=== PATIENT | female | born 1960 | race Caucasian/White ===

== ENCOUNTER 2017-08-12 11:37 | Inpatient (IN) | payer OTHER ==
[2017-08-12 12:22] VITALS: BMI 22.3
--- NOTE | 2017-08-12 13:58 | HP ---
CIWA Score - CIWA Score Nausea/Vomitin Muscle Tremors: 3 Anxiety: 3 Agitation: 3 Paroxysmal Sweats: 2 Orientation: 0-Oriented Tacttile Disturbances: 2-Mild Itch/Numbness/Burn Auditory Disturbances: 2-Mild Harshness/Frighten Visual Disturbances: 0-None Headache: 2-Mild CIWA-Ar Total Score: 20 Admission ROS [facility] - HPI Chief Complaint: I NEED HELP TO STOP DRINKING OF ALCOHOL Allergies/Adverse Reactions: Allergies Allergy/AdvReac Type Severity Reaction Status Date / Time No Known Allergies Allergy Verified 08/12/17 13:54 History of Present Illness: THIS 57 YEARS OLD FEMALE WITH ALCOHOL DEPENDENCE SEEKING DETOX,WITHDRAWAL SYMPTOM,LAST TREATMENT IN [facility] 07/21 SYNCOPE NICOTINE DEPENDENCE LONGEST PERIOD OF SOBRIETY 2 YEARS Exam Limitations: No Limitations - Ebola screening Have you traveled outside of the country in the last 21 days: No Have you had contact with anyone from an Ebola affected area: No Have you been sick,other than usual withdrawal symptoms: No Do you have a fever: No - Review of Systems Constitutional: Loss of Appetite, Malaise, Night Sweats, Changes in sleep, Weakness EENT: reports: Nose Congestion Respiratory: reports: No Symptoms reported Cardiac: reports: No Symptoms Reported GI: reports: Diarrhea, Nausea, Vomiting, Abdominal cramping : reports: No Symptoms Reported Musculoskeletal: reports: Back Pain, Muscle Pain Integumentary: reports: Dryness Neuro: reports: Tremors Endocrine: reports: No Symptoms Reported Hematology: reports: No Symptoms Reported Psychiatric: reports: Anxious (INSOMNIA), Depressed Patient History - Patient Medical History Hx Anemia: No Hx Asthma: No Hx Chronic Obstructive Pulmonary Disease (COPD): No Hx Cancer: No Hx Cardiac Disorders: No Hx Congestive Heart Failure: No Hx Hypertension: No Hx Hypercholesterolemia: No Hx Pacemaker: No HX Cerebrovascular Accident: No Hx Seizures: No Hx Dementia: No Hx Diabetes: No Hx Gastrointestinal Disorders: No Hx Liver Disease: No Hx Genitourinary Disorders: No Hx Sexually Transmitted Disorders: No Hx Renal Disease (ESRD): No Hx Thyroid Disease: No Hx Human Immunodeficiency Virus (HIV): No (LAST NEGATIVE) Hx Hepatitis C: No Hx Depression: No (DEPRESSIN,INSOMNIA) Hx Suicide Attempt: No Hx Bipolar Disorder: No Hx Schizophrenia: No Other Medical History: NO SUICIDAL,NO HOMICIDAL - Patient Surgical History Past Surgical History: No - PPD History Previous Implant?: Yes Documented Results: Negative w/o proof Implanted On Prior R Admission?: No PPD to be Administered?: Yes - Reproductive History Patient is a Female of Child Bearing Age (11 -55 yrs old): No Patient : No - Smoking Cessation Smoking history: Current every day smoker Have you smoked in the past 12 months: Yes Aproximately how many cigarettes per day: 5 Hx Chewing Tobacco Use: No Initiated information on smoking cessation: Yes 'Breaking Loose' booklet given: 08/12/17 - Substance & Tx. History Hx Alcohol Use: Yes - Substances Abused Alcohol Route: Oral Frequency: Daily Amount used: 1/2 PINT-1 PINT VODKA Age of first use: 17 Date of Last Use: 08/12/17 Family Disease History - Family Disease History Family History: Denies Admission Physical Exam [facility] - Vital Signs Vital Signs: Vital Signs - 24 hr 08/12/17 12:17 Temperature 96.8 F L Pulse Rate 112 H Respiratory 18 Rate Blood Pressure 137/87 - Physical General Appearance: Yes: Moderate Distress, Tremorous, Irritable, Sweating, Anxious HEENTM: Yes: SPRING, Pharynx Normal Respiratory: Yes: Lungs Clear, Normal Breath Sounds, No Respiratory Distress Neck: Yes: Within Normal Limits, Supple, Trachea in good position Breast: Yes: Breast Exam Deferred Cardiology: Yes: Within Normal Limits, Regular Rhythm, Regular Rate, S1, S2 Abdominal: Yes: Within Normal Limits, Normal Bowel Sounds, Non Tender, Flat, Soft Genitourinary: Yes: Within Normal Limits Back: Yes: Muscle Spasm Musculoskeletal: Yes: full range of Motion, Gait Steady, Back pain, Muscle Pain Extremities: Yes: Tremors 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, Fully Oriented, Alert, Motor Strength 5/5 Integumentary: Yes: Dry Lymphatic: Yes: Within Normal Limits - Diagnostic (1) Alcohol dependence with uncomplicated withdrawal Current Visit: Yes Status: Acute (2) Syncope Current Visit: Yes Status: Acute (3) Nicotine dependence Current Visit: Yes Status: Acute (4) Insomnia secondary to depression with anxiety Current Visit: Yes Status: Acute (5) Anemia Current Visit: Yes Status: Acute Cleared for Admission [facility] - Detox or Rehab [facility] Level of Care: Medically Managed Detox Regimen/Protocol: Librium [facility] Breath Alcohol Content Breath Alcohol Content: 0.220 Urine Pregancy Test - Result Urine Test Results: Negative- NO Line Present Urine Drug Screen - Results Drug Screen Negative: No Urine Drug Screen Results: TCA-Tricyclic Antidepress
[2017-08-12] MEDS ORDERED: ACETAMINOPHEN 325 MG TABLET (FP) PO PRN (14:11)
[2017-08-12] MEDS ORDERED: LOPERAMIDE HCL 2 MG CAPSULE PO PRN (14:11)
[2017-08-12] MEDS ORDERED: P-EPHED 60MG/TRIPROLIDI 2.5MG TABLET PO PRN (14:11)
[2017-08-12] MEDS ORDERED: MENTHOL/PHENOL 1 EACH UD MM PRN (14:11)
[2017-08-12] MEDS ORDERED: MAGNESIUM CITRATE 300 ML BOTTLE PO PRN (14:11)
[2017-08-12] MEDS ORDERED: IBUPROFEN 400 MG TABLET (FP) PO PRN (14:11)
[2017-08-12] MEDS ORDERED: MAGNESIUM HYDROX 2400MG/30ML ORAL SUSPENSION 30 ML CUP PO PRN (14:11)
[2017-08-12] MEDS ORDERED: guaiFENesin/D-METHORPHAN HB 10 ML UNIT-DOSE CUPS PO PRN (14:11)
[2017-08-12] MEDS ORDERED: MAG HYDROX/AL HYDROX/SIMETH 30 ML UNIT-DOSE CUP PO PRN (14:11)
[2017-08-12] MEDS ORDERED: chlordiazePOXIDE HCL 25 MG CAPSULE PO ONE (14:44)
[2017-08-12] MEDS: hydrOXYzine PAMOATE 50 MG CAPSULE (FP) PO PRN (15:29)
[2017-08-12] MEDS: chlordiazePOXIDE HCL 25 MG CAPSULE PO SCH ×2 (16:58→22:13)
--- NOTE | 2017-08-12 17:11 | CONSULT ---
[facility] Psychiatric Consult - Data Date of interview: 08/12/17 Admission source: [facility] Identifying data: Pt. is a 57 year old female, , mother of two, and currently unemployed. This is patient's first admission to [facility]. Pt. admitted to for alcohol dependence. Substance Abuse History: Smoking Cessation. Smoking history: Current every day smoker. Have you smoked in the past 12 months: Yes. Aproximately how many cigarettes per day: 5. Hx Chewing Tobacco Use: No. Initiated information on smoking cessation: Yes. 'Breaking Loose' booklet given: 08/12/17 Medical History: denies. Psychiatric History: Pt. denies h/o psychiatric hospitalization, suicide attempts, and outpatient care. Patient's primary care physician prescribes patient trazodone 150mg and lexapro 20mg. Reports taking the medications three days ago. Pt. denies suicidal and homicidal ideation. Physical/Sexual Abuse/Trauma History: Denies. Mental Status Exam - Mental Status Exam Alert and Oriented to: Time, Place, Person Cognitive Function: Good Patient Appearance: Unkempt Mood: Euthymic Affect: Mood Congruent Patient Behavior: Appropriate, Cooperative Speech Pattern: Clear, Appropriate Voice Loudness: Normal Thought Process: Goal Oriented Thought Disorder: Not Present Hallucinations: Denies Suicidal Ideation: Denies Homicidal Ideation: Denies Insight/Judgement: Poor Sleep: Poorly Appetite: Poor Muscle strength/Tone: Normal Gait/Station: Normal Psychiatric Findings - Problem List ([place] 1, 2,3) (1) Insomnia Current Visit: Yes Status: Acute (2) MDD (major depressive disorder) Current Visit: Yes Status: Suspected (3) Alcohol dependence with uncomplicated withdrawal Current Visit: Yes Status: Acute (4) Nicotine dependence Current Visit: Yes Status: Acute - Initial Treatment Plan Initial Treatment Plan: Psychoeducation provided. Detoxification provided. Lexapro 20mg+ Trazodone 150mg qhs. Pt. reports taking trazodone 150mg with librium in other detox facilities. Benefits and side effects discussed. Pharmacy claims reviewed. Verbal consent given.
[2017-08-12] MEDS: chlordiazePOXIDE HCL 25 MG CAPSULE PO PRN (19:54)
[2017-08-12] MEDS: traZODone HCL 50 MG TABLET (FP) PO SCH (22:13)
[2017-08-12] MEDS: THIAMINE HCL 100 MG TABLET (FP) PO SCH (22:13)
[2017-08-12 22:22] LABS: URINE APPEARANCE SLCLOUDY; URINE BILIRUBIN NEGATIVE (NEGATIVE); URINE BLOOD NEGATIVE (NEGATIVE); URINE COLOR YELLOW; URINE GLUCOSE (UA) NEGATIVE (NEGATIVE); URINE KETONE 1+ (NEGATIVE); URINE NITRITE NEGATIVE (NEGATIVE); URINE UROBILINOGEN NEGATIVE mg/dL (0.2-1.0)
[2017-08-12 22:23] LABS: URINE LEUK ESTERASE 3+ (NEGATIVE); URINE PROTEIN 1+ (NEGATIVE)
[2017-08-12 22:48] LABS: EPI CELLS FEW /HPF (FEW); URINE MUCUS RARE
[2017-08-13] MEDS: chlordiazePOXIDE HCL 25 MG CAPSULE PO SCH ×4 (05:35→22:18)
[2017-08-13] MEDS: NICOTINE 14 MG/24 HOURS TOPICAL PATCH TD SCH (10:27)
[2017-08-13] MEDS: ESCITALOPRAM OXALATE 20 MG TABLET (FP) PO SCH (10:27)
[2017-08-13] MEDS: PRENATAL VITAMINS W/ FOLIC ACID TABLET (FP) PO SCH (10:27)
[2017-08-13 10:29] LABS: HEMATOCRIT 36.2 % (32.4-45.2); HEMOGLOBIN 12.2 GM/dL (10.7-15.3); MCH 31.7 pg (25.7-33.7); MCHC 33.7 g/dl (32.0-36.0); MEAN CELL VOLUME 93.9 fl (80-96); MEAN PLT VOLUME 7.9 fl (7.5-11.1); PLATELET COUNT 292 K/MM3 (134-434); RBC 3.85 M/mm3 (3.60-5.2); RDW 13.5 % (11.6-15.6); WHITE BLOOD COUNT 5.2 K/mm3 (4.0-10.0)
[2017-08-13 10:35] LABS: ALBUMIN 3.8 g/dl (3.4-5.0); ANION GAP 9 (8-16); BLOOD UREA NITROGEN 10 mg/dL (7-18); CALCIUM 9.1 mg/dL (8.5-10.1); CHLORIDE 99 mmol/L (98-107); CO2 33 mmol/L (21-32); GLUCOSE,RANDOM 91 mg/dL (74-106); POTASSIUM 4.1 mmol/L (3.5-5.1); SODIUM 141 mmol/L (136-145)
[2017-08-13 10:40] LABS: ALK PHOS 56 U/L (45-117); BILIRUBIN,TOTAL 0.9 mg/dL (0.2-1.0); CREATININE 0.7 mg/dL (0.55-1.02); SGOT/AST 39 U/L (15-37); SGPT/ALT 37 U/L (12-78); TOT PROT 6.9 g/dl (6.4-8.2)
[2017-08-13] MEDS: chlordiazePOXIDE HCL 25 MG CAPSULE PO PRN (14:56)
--- NOTE | 2017-08-13 16:01 | EKG ---
Test Reason : Blood Pressure : / mmHG Vent. Rate : 096 BPM Atrial Rate : 096 BPM P-R Int : 142 ms QRS Dur : 080 ms QT Int : 358 ms P-R-T Axes : 074 052 070 degrees QTc Int : 452 ms NORMAL SINUS RHYTHM NONSPECIFIC T WAVE ABNORMALITY ABNORMAL ECG NO PREVIOUS ECGS AVAILABLE Confirmed by NED PARRISH MD ([id number]) on 08/13/2017 4:00:58 PM Referred By: Confirmed By:NED PARRISH MD
[2017-08-13] MEDS: traZODone HCL 50 MG TABLET (FP) PO SCH (22:18)
[2017-08-13] MEDS: THIAMINE HCL 100 MG TABLET (FP) PO SCH (22:18)
[2017-08-14] MEDS: chlordiazePOXIDE HCL 25 MG CAPSULE PO SCH ×2 (05:55→10:19)
[2017-08-14] MEDS: hydrOXYzine PAMOATE 50 MG CAPSULE (FP) PO PRN (09:16)
[2017-08-14] MEDS: NICOTINE 14 MG/24 HOURS TOPICAL PATCH TD SCH (10:18)
[2017-08-14] MEDS: PRENATAL VITAMINS W/ FOLIC ACID TABLET (FP) PO SCH (10:18)
[2017-08-14] MEDS: ESCITALOPRAM OXALATE 20 MG TABLET (FP) PO SCH (10:19)
--- NOTE | 2017-08-14 15:01 | PN ---
[facility] CIWA - CIWA Score Nausea/Vomitin-Mild Nausea/No Vomiting Muscle Tremors: 4-Moderate,w/Arms Extend Anxiety: 4-Mod. Anxious/Guarded Agitation: 4-Moderately Restless Paroxysmal Sweats: 1-Minimal Palms Moist Orientation: 0-Oriented Tacttile Disturbances: 0-None Auditory Disturbances: 0-None Visual Disturbances: 0-None Headache: 0-None Present CIWA-Ar Total Score: 14 S Progress Note (SOAP) Subjective: tremor anxiety sweat irritability Objective: 08/14/17 15:05 Vital Signs Temperature 98.6 F 08/14/17 14:21 Pulse Rate 90 08/14/17 14:21 Respiratory Rate 16 08/14/17 14:21 Blood Pressure 117/74 08/14/17 14:21 O2 Sat by Pulse Oximetry (%) Laboratory Last Values WBC 5.2 K/mm3 (4.0-10.0) 08/13/17 08:00 RBC 3.85 M/mm3 (3.60-5.2) 08/13/17 08:00 Hgb 12.2 GM/dL (10.7-15.3) 08/13/17 08:00 Hct 36.2 % (32.4-45.2) 08/13/17 08:00 MCV 93.9 fl (80-96) 08/13/17 08:00 MCH 31.7 pg (25.7-33.7) 08/13/17 08:00 MCHC 33.7 g/dl (32.0-36.0) 08/13/17 08:00 RDW 13.5 % (11.6-15.6) 08/13/17 08:00 Plt Count 292 K/MM3 (134-434) 08/13/17 08:00 MPV 7.9 fl (7.5-11.1) 08/13/17 08:00 Sodium 141 mmol/L (136-145) 08/13/17 08:00 Potassium 4.1 mmol/L (3.5-5.1) 08/13/17 08:00 Chloride 99 mmol/L (98-107) 08/13/17 08:00 Carbon Dioxide 33 mmol/L (21-32) H 08/13/17 08:00 Anion Gap 9 (8-16) 08/13/17 08:00 BUN 10 mg/dL (7-18) 08/13/17 08:00 Creatinine 0.7 mg/dL (0.55-1.02) 08/13/17 08:00 Creat Clearance w eGFR > 60 (>60) 08/13/17 08:00 Random Glucose 91 mg/dL (74-106) 08/13/17 08:00 Calcium 9.1 mg/dL (8.5-10.1) 08/13/17 08:00 Total Bilirubin 0.9 mg/dL (0.2-1.0) 08/13/17 08:00 AST 39 U/L (15-37) H 08/13/17 08:00 ALT 37 U/L (12-78) 08/13/17 08:00 Alkaline Phosphatase 56 U/L (45-117) 08/13/17 08:00 Total Protein 6.9 g/dl (6.4-8.2) 08/13/17 08:00 Albumin 3.8 g/dl (3.4-5.0) 08/13/17 08:00 Urine Color Yellow 08/12/17 20:07 Urine Appearance Slcloudy 08/12/17 20:07 Urine pH 5.0 (5.0-8.0) 08/12/17 20:07 Ur Specific [place] 1.012 (1.001-1.035) 08/12/17 20:07 Urine Protein 1+ (NEGATIVE) H 08/12/17 20:07 Urine Glucose (UA) Negative (NEGATIVE) 08/12/17 20:07 Urine Ketones 1+ (NEGATIVE) H 08/12/17 20:07 Urine Blood Negative (NEGATIVE) 08/12/17 20:07 Urine Nitrite Negative (NEGATIVE) 08/12/17 20:07 Urine Bilirubin Negative (NEGATIVE) 08/12/17 20:07 Urine Urobilinogen Negative mg/dL (0.2-1.0) 08/12/17 20:07 Ur Leukocyte Esterase 3+ (NEGATIVE) H 08/12/17 20:07 Urine WBC (Auto) 46 /hpf (3-5) 08/12/17 20:07 Urine RBC (Auto) 2 /hpf (0-3) 08/12/17 20:07 Ur Epithelial Cells Few /HPF (FEW) 08/12/17 20:07 Urine Mucus Rare 08/12/17 20:07 RPR Titer Nonreactive (NONREACTIVE) 08/13/17 08:00 lab noted 08/14/17 15:06 repeat ua Assessment: 08/14/17 15:07 withdrawal sx Plan: continue detox
[2017-08-14] MEDS: chlordiazePOXIDE 5 MG CAPSULE PO SCH ×2 (17:20→22:16)
[2017-08-14] MEDS: traZODone HCL 50 MG TABLET (FP) PO SCH (22:16)
[2017-08-14] MEDS: THIAMINE HCL 100 MG TABLET (FP) PO SCH (22:16)
[2017-08-15] MEDS: chlordiazePOXIDE 5 MG CAPSULE PO SCH ×2 (05:10→10:26)
[2017-08-15 10:09] LABS: URINE APPEARANCE SLCLOUDY; URINE BILIRUBIN NEGATIVE (NEGATIVE); URINE BLOOD NEGATIVE (NEGATIVE); URINE COLOR LTYELLOW; URINE GLUCOSE (UA) NEGATIVE (NEGATIVE); URINE KETONE NEGATIVE (NEGATIVE); URINE NITRITE NEGATIVE (NEGATIVE); URINE PROTEIN NEGATIVE (NEGATIVE); URINE UROBILINOGEN NEGATIVE mg/dL (0.2-1.0)
[2017-08-15 10:14] LABS: URINE LEUK ESTERASE 3+ (NEGATIVE)
[2017-08-15 10:15] LABS: EPI CELLS FEW /HPF (FEW)
[2017-08-15] MEDS: PRENATAL VITAMINS W/ FOLIC ACID TABLET (FP) PO SCH (10:26)
[2017-08-15] MEDS: NICOTINE 14 MG/24 HOURS TOPICAL PATCH TD SCH (10:26)
[2017-08-15] MEDS: ESCITALOPRAM OXALATE 20 MG TABLET (FP) PO SCH (10:26)
--- NOTE | 2017-08-15 10:46 | PN ---
S Progress Note (SOAP) Subjective: mild sweat no tremor less anxiousness alert oriented Objective: 08/15/17 10:45 Vital Signs Temperature 97.7 F 08/15/17 06:28 Pulse Rate 80 08/15/17 06:28 Respiratory Rate 16 08/15/17 06:28 Blood Pressure 108/58 08/15/17 06:28 O2 Sat by Pulse Oximetry (%) Laboratory Last Values WBC 5.2 K/mm3 (4.0-10.0) 08/13/17 08:00 RBC 3.85 M/mm3 (3.60-5.2) 08/13/17 08:00 Hgb 12.2 GM/dL (10.7-15.3) 08/13/17 08:00 Hct 36.2 % (32.4-45.2) 08/13/17 08:00 MCV 93.9 fl (80-96) 08/13/17 08:00 MCH 31.7 pg (25.7-33.7) 08/13/17 08:00 MCHC 33.7 g/dl (32.0-36.0) 08/13/17 08:00 RDW 13.5 % (11.6-15.6) 08/13/17 08:00 Plt Count 292 K/MM3 (134-434) 08/13/17 08:00 MPV 7.9 fl (7.5-11.1) 08/13/17 08:00 Sodium 141 mmol/L (136-145) 08/13/17 08:00 Potassium 4.1 mmol/L (3.5-5.1) 08/13/17 08:00 Chloride 99 mmol/L (98-107) 08/13/17 08:00 Carbon Dioxide 33 mmol/L (21-32) H 08/13/17 08:00 Anion Gap 9 (8-16) 08/13/17 08:00 BUN 10 mg/dL (7-18) 08/13/17 08:00 Creatinine 0.7 mg/dL (0.55-1.02) 08/13/17 08:00 Creat Clearance w eGFR > 60 (>60) 08/13/17 08:00 Random Glucose 91 mg/dL (74-106) 08/13/17 08:00 Calcium 9.1 mg/dL (8.5-10.1) 08/13/17 08:00 Total Bilirubin 0.9 mg/dL (0.2-1.0) 08/13/17 08:00 AST 39 U/L (15-37) H 08/13/17 08:00 ALT 37 U/L (12-78) 08/13/17 08:00 Alkaline Phosphatase 56 U/L (45-117) 08/13/17 08:00 Total Protein 6.9 g/dl (6.4-8.2) 08/13/17 08:00 Albumin 3.8 g/dl (3.4-5.0) 08/13/17 08:00 Urine Color Ltyellow 08/15/17 07:00 Urine Appearance Slcloudy 08/15/17 07:00 Urine pH 6.0 (5.0-8.0) 08/15/17 07:00 Ur Specific [place] 1.011 (1.001-1.035) 08/15/17 07:00 Urine Protein Negative (NEGATIVE) 08/15/17 07:00 Urine Glucose (UA) Negative (NEGATIVE) 08/15/17 07:00 Urine Ketones Negative (NEGATIVE) 08/15/17 07:00 Urine Blood Negative (NEGATIVE) 08/15/17 07:00 Urine Nitrite Negative (NEGATIVE) 08/15/17 07:00 Urine Bilirubin Negative (NEGATIVE) 08/15/17 07:00 Urine Urobilinogen Negative mg/dL (0.2-1.0) 08/15/17 07:00 Ur Leukocyte Esterase 3+ (NEGATIVE) H 08/15/17 07:00 Urine WBC (Auto) 118 /hpf (3-5) 08/15/17 07:00 Urine RBC (Auto) 3 /hpf (0-3) 08/15/17 07:00 Ur Epithelial Cells Few /HPF (FEW) 08/15/17 07:00 Urine Mucus Rare 08/12/17 20:07 RPR Titer Nonreactive (NONREACTIVE) 08/13/17 08:00 lab noted Assessment: 08/15/17 10:49 mild withdrawal sx Plan: medically supervised detox
[2017-08-15] MEDS: chlordiazePOXIDE HCL 10 MG CAPSULE PO SCH ×2 (17:42→22:00)
[2017-08-15] MEDS: traZODone HCL 50 MG TABLET (FP) PO SCH (22:00)
[2017-08-15] MEDS: THIAMINE HCL 100 MG TABLET (FP) PO SCH (22:00)
[2017-08-16] MEDS: chlordiazePOXIDE HCL 10 MG CAPSULE PO SCH (05:43)
[2017-08-16] MEDS ORDERED: NICOTINE POLACRILEX 2 MG GUM BUC PRN (07:03)
--- NOTE | 2017-08-16 08:54 | DS ---
[facility] Detox Discharge Summary Admission Date: 08/12/17 Discharge Date: 08/16/17 - History Present History: Alcohol Dependence - Physical Exam Results Vital Signs: Vital Signs Temperature 97.7 F 08/16/17 06:25 Pulse Rate 82 08/16/17 06:25 Respiratory Rate 16 08/16/17 06:25 Blood Pressure 104/62 08/16/17 06:25 O2 Sat by Pulse Oximetry (%) Pertinent Admission Physical Exam Findings: withdrawal sx Vital Signs Temperature 97.7 F 08/16/17 06:25 Pulse Rate 82 08/16/17 06:25 Respiratory Rate 16 08/16/17 06:25 Blood Pressure 104/62 08/16/17 06:25 O2 Sat by Pulse Oximetry (%) Laboratory Last Values WBC 5.2 K/mm3 (4.0-10.0) 08/13/17 08:00 RBC 3.85 M/mm3 (3.60-5.2) 08/13/17 08:00 Hgb 12.2 GM/dL (10.7-15.3) 08/13/17 08:00 Hct 36.2 % (32.4-45.2) 08/13/17 08:00 MCV 93.9 fl (80-96) 08/13/17 08:00 MCH 31.7 pg (25.7-33.7) 08/13/17 08:00 MCHC 33.7 g/dl (32.0-36.0) 08/13/17 08:00 RDW 13.5 % (11.6-15.6) 08/13/17 08:00 Plt Count 292 K/MM3 (134-434) 08/13/17 08:00 MPV 7.9 fl (7.5-11.1) 08/13/17 08:00 Sodium 141 mmol/L (136-145) 08/13/17 08:00 Potassium 4.1 mmol/L (3.5-5.1) 08/13/17 08:00 Chloride 99 mmol/L (98-107) 08/13/17 08:00 Carbon Dioxide 33 mmol/L (21-32) H 08/13/17 08:00 Anion Gap 9 (8-16) 08/13/17 08:00 BUN 10 mg/dL (7-18) 08/13/17 08:00 Creatinine 0.7 mg/dL (0.55-1.02) 08/13/17 08:00 Creat Clearance w eGFR > 60 (>60) 08/13/17 08:00 Random Glucose 91 mg/dL (74-106) 08/13/17 08:00 Calcium 9.1 mg/dL (8.5-10.1) 08/13/17 08:00 Total Bilirubin 0.9 mg/dL (0.2-1.0) 08/13/17 08:00 AST 39 U/L (15-37) H 08/13/17 08:00 ALT 37 U/L (12-78) 08/13/17 08:00 Alkaline Phosphatase 56 U/L (45-117) 08/13/17 08:00 Total Protein 6.9 g/dl (6.4-8.2) 08/13/17 08:00 Albumin 3.8 g/dl (3.4-5.0) 08/13/17 08:00 Urine Color Ltyellow 08/15/17 07:00 Urine Appearance Slcloudy 08/15/17 07:00 Urine pH 6.0 (5.0-8.0) 08/15/17 07:00 Ur Specific [place] 1.011 (1.001-1.035) 08/15/17 07:00 Urine Protein Negative (NEGATIVE) 08/15/17 07:00 Urine Glucose (UA) Negative (NEGATIVE) 08/15/17 07:00 Urine Ketones Negative (NEGATIVE) 08/15/17 07:00 Urine Blood Negative (NEGATIVE) 08/15/17 07:00 Urine Nitrite Negative (NEGATIVE) 08/15/17 07:00 Urine Bilirubin Negative (NEGATIVE) 08/15/17 07:00 Urine Urobilinogen Negative mg/dL (0.2-1.0) 08/15/17 07:00 Ur Leukocyte Esterase 3+ (NEGATIVE) H 08/15/17 07:00 Urine WBC (Auto) 118 /hpf (3-5) 08/15/17 07:00 Urine RBC (Auto) 3 /hpf (0-3) 08/15/17 07:00 Ur Epithelial Cells Few /HPF (FEW) 08/15/17 07:00 Urine Mucus Rare 08/12/17 20:07 RPR Titer Nonreactive (NONREACTIVE) 08/13/17 08:00 lab noted - Treatment Hospital Course: Detox Protocol Followed, Detoxed Safely, Responded well, Discharged Condition Good, Rehab Referral Accepted Patient has Accepted a Rehab Referral [facility]: [facility] - Medication Discharge Medications: Ambulatory Orders Escitalopram Oxalate [Lexapro -] 20 mg PO DAILY 08/12/17 Trazodone HCl 150 mg PO HS 08/12/17 - Diagnosis (1) Alcohol dependence with uncomplicated withdrawal Current Visit: Yes Status: Acute (2) MDD (major depressive disorder) Current Visit: Yes Status: Suspected Qualifiers: Major depression recurrence: recurrent Active/Remission status: in partial remission Qualified Code(s): F33.41 - Major depressive disorder, recurrent, in partial remission - AMA Did Patient Leave Against Medical Advice: No
[2017-08-16] MEDS: PRENATAL VITAMINS W/ FOLIC ACID TABLET (FP) PO SCH (09:23)
[2017-08-16 09:47] LABS: URINE APPEARANCE SLCLOUDY; URINE BILIRUBIN NEGATIVE (NEGATIVE); URINE BLOOD NEGATIVE (NEGATIVE); URINE COLOR LTYELLOW; URINE GLUCOSE (UA) NEGATIVE (NEGATIVE); URINE KETONE NEGATIVE (NEGATIVE); URINE NITRITE NEGATIVE (NEGATIVE); URINE PROTEIN NEGATIVE (NEGATIVE); URINE UROBILINOGEN NEGATIVE mg/dL (0.2-1.0)
[2017-08-16 09:49] LABS: URINE LEUK ESTERASE 3+ (NEGATIVE)
[2017-08-16 10:31] LABS: EPI CELLS RARE /HPF (FEW)
[2017-08-16 10:37] VITALS: BP 109/64; PULSE 101; TEMP 99.1
[2017-08-16] MEDS: ESCITALOPRAM OXALATE 20 MG TABLET (FP) PO SCH (11:54)
[2017-08-16] MEDS: NICOTINE 14 MG/24 HOURS TOPICAL PATCH TD SCH (11:54)
== END 2017-08-16 09:54 | disposition home or self-care (01) | DRG 775 ==
LOC: YASAS 11:37 → Y6N 14:11
PROVIDERS: ADMIT Internal Medicine; ATTEND Internal Medicine
PROC: HZ2ZZZZ Detoxification Services for Substance Abuse Treatment (ICD-10-PCS; principal; 2017-08-12)
DX: F10.230 Alcohol dependence with withdrawal, uncomplicated (principal); F17.210 Nicotine dependence, cigarettes, uncomplicated; F33.41 Major depressive disorder, recurrent, in partial remission; F51.05 Insomnia due to other mental disorder; D64.9 Anemia, unspecified
CPT/HCPCS: 36415; 80053; 81003; 81015; 85027; 86593; 93005; 93010

== ENCOUNTER 2018-12-18 19:26 | Inpatient (IN) | payer OTHER ==
[2018-12-18 21:07] VITALS: BMI 25.1
--- NOTE | 2018-12-18 22:12 | HP ---
"CIWA Score Nausea/Vomitin Muscle Tremors: 4-Moderate,w/Arms Extend Anxiety: 3 Agitation: 3 Paroxysmal Sweats: 3 (Increased facial moisture) Orientation: 0-Oriented Tacttile Disturbances: 0-None Auditory Disturbances: 0-None Visual Disturbances: 0-None Headache: 2-Mild CIWA-Ar Total Score: 18 - Admission Criteria [facility] Guidelines: Admission for Medically Managed Detox: Requires at least one of the followin. CIWA greater than 12 2. Seizures within the past 24 hours 3. Delirium tremens within the past 24 hours 4. Hallucinations within the past 24 hours 5. Acute intervention needed for co occurring medical disorder 6. Acute intervention needed for co occurring psychiatric disorder 7. Severe withdrawal that cannot be handled at a lower level of care (continued vomiting, continued diarrhea, abnormal vital signs) requiring intravenous medication and/or fluids 8. Patient presents the following: CIWA greater than 12 Admission Criteria Met: Admission criteria met Admission ROS S - [facility] Chief Complaint: I am having alcohol withdrawal. Allergies/Adverse Reactions: Allergies Allergy/AdvReac Type Severity Reaction Status Date / Time No Known Allergies Allergy Verified 12/18/18 20:56 History of Present Illness: 58 yof presents to [facility] with alcohol withdrawal symptoms, requesting detox. Alcohol use since age 18. Currently drinks 8 nips (8x1.7 oz = 13.6 oz) liquors x last 2 months. Nicotine use since age 18/intermittent. Current use is 4/day. Denies seizures. Blackouts - last 2 months ago. Denies overdoses. Longest length of sobriety 1 year in 2015 and 6 months in 2018. PMHx: Rosacea - nasal area MHHx: Insomnia, depression, anxiety. Denies thoughts of harming self or others. Patient Name: Bubba Martin Date: 1960 Address: [address] [place] [address] [address] [place] [address] Sex: Female Rx Written Rx Dispensed Drug Quantity Days Supply Prescriber Name 11/06/2018 11/06/2018 chlordiazepoxide 10 mg capsule 120 30 Arlene Camarena MD Search Terms: Bubba Martin, 1960 Search Date: 12/18/2018 10:11:08 PM States Searched: [place], [place], [place], [place], [place], [place] The Drug Utilization Report below displays the controlled substance prescriptions, if any, that were dispensed in the indicated state(s). The information displayed on this report is compiled from requests submitted to other states' PMPs, and accurately reflects the information as returned by them. Blank tomlinson indicate data not provided by other state. This report was requested by: Saadia Najera | Reference #: [id number] Exam Limitations: No Limitations - Ebola screening Have you traveled outside of the country in the last 21 days: No (N) Have you had contact with anyone from an Ebola affected area: No Have you been sick,other than usual withdrawal symptoms: No (Denies recent exposure to measles) Do you have a fever: No - Review of Systems Constitutional: Chills, Diaphoresis, Changes in sleep (Difficulty falling asleep - on Trazodone) EENT: reports: Blurred Vision, Other (Nasal Rosacea) Respiratory: reports: No Symptoms reported Cardiac: reports: No Symptoms Reported GI: reports: Nausea, Abdominal cramping : reports: No Symptoms Reported Musculoskeletal: reports: No Symptoms Reported Integumentary: reports: Change in Color (Rosacea) Neuro: reports: Headache (Mild - frontal) Endocrine: reports: Increased Thirst Hematology: reports: No Symptoms Reported Psychiatric: reports: Orientated x3, Agitated, Anxious, Depressed (Denies thoughts of harming self or otehrs) Patient History - Patient Medical History Hx Anemia: No Hx Asthma: No Hx Chronic Obstructive Pulmonary Disease (COPD): No Hx Cancer: No Hx Cardiac Disorders: No Hx Congestive Heart Failure: No Hx Hypertension: No Hx Hypercholesterolemia: No Hx Pacemaker: No HX Cerebrovascular Accident: No Hx Seizures: No Hx Dementia: No Hx Diabetes: No Hx Gastrointestinal Disorders: No Hx Liver Disease: No Hx Genitourinary Disorders: No Hx Sexually Transmitted Disorders: No Hx Renal Disease (ESRD): No Hx Thyroid Disease: No Hx Human Immunodeficiency Virus (HIV): No (LAST P1 NEGATIVE) Hx Hepatitis C: No Hx Depression: No (DEPRESSIN,INSOMNIA) Hx Suicide Attempt: No Hx Bipolar Disorder: No Hx Schizophrenia: No - Patient Surgical History Past Surgical History: No - PPD History Previous Implant?: Yes Documented Results: Negative w/proof Implanted On Prior [facility] Admission?: Yes Date: 08/14/17 PPD to be Administered?: Yes - Reproductive History Patient is a Female of Child Bearing Age (11 -55 yrs old): Yes Patient : No - Smoking Cessation Smoking history: Current every day smoker Have you smoked in the past 12 months: Yes Aproximately how many cigarettes per day: 5 Hx Chewing Tobacco Use: No Initiated information on smoking cessation: Yes 'Breaking Loose' booklet given: 12/18/18 - Substance & Tx. History Hx Alcohol Use: Yes Hx Substance Use: Yes Substance Use Type: Alcohol Hx Substance Use Treatment: Yes (detox, rehab) - Substances abused Alcohol Substance route: Oral Frequency: Daily Amount used: Vodka 6-8 (1.7oz) bottles Age of first use: 18 Date of last use: 12/17/18 Admission Physical Exam [facility] - Vital Signs Vital Signs: Vital Signs - 24 hr 12/18/18 20:53 Temperature 97.0 F L Pulse Rate 103 H Respiratory 18 Rate Blood Pressure 85/50 L - Physical General Appearance: Yes: Nourished, Mild Distress, Tremorous, Irritable, Sweating (Increased facial moisture), Anxious HEENTM: Yes: EOMI, Hearing grossly Normal, Normocephalic, Normal Voice, SPRING, Other (bumpy bright redness of nasal area) Respiratory: Yes: Lungs Clear, Normal Breath Sounds, No Respiratory Distress Neck: Yes: No masses,lesions,Nodules, Supple Breast: Yes: Breast Exam Deferred Cardiology: Yes: Regular Rhythm, Regular Rate (HR=96), S1, S2 Abdominal: Yes: Non Tender, Soft, Increased Bowel Sounds Genitourinary: Yes: Within Normal Limits Back: Yes: Normal Inspection Musculoskeletal: Yes: full range of Motion, Gait Steady Extremities: Yes: Normal Capillary Refill, Normal Range of Motion, Tremors ( Gross temors of hands on elevation) 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: 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: 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-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 intact, Fully Oriented, Alert, Motor Strength 5/5, Normal Response Integumentary: Yes: Warm, Erythema (bumpy bright redness of nasal area), Diaphoresis (Increased facial moisture) - Diagnostic (1) Alcohol dependence with uncomplicated withdrawal Current Visit: Yes Status: Acute (2) Nicotine dependence Current Visit: Yes Status: Chronic Qualifiers: Nicotine product type: cigarettes Substance use status: uncomplicated Qualified Code(s): F17.210 - Nicotine dependence, cigarettes, uncomplicated (3) Rosacea Current Visit: Yes Status: Chronic Cleared for Admission [facility] - Detox or Rehab [facility] Level of Care: Medically Managed Detox Regimen/Protocol: Librium Claeared for Rehab Admission: No Inpatient Rehab Admission - Rehab Decision to Admit Inpatient rehab admission?: No"
[2018-12-18] MEDS ORDERED: IBUPROFEN 400 MG TABLET (FP) PO PRN (22:45)
[2018-12-18] MEDS ORDERED: NICOTINE POLACRILEX 2 MG GUM BUC PRN (22:45)
[2018-12-18] MEDS ORDERED: ACETAMINOPHEN 325 MG TABLET (FP) PO PRN ×2 (22:45)
[2018-12-18] MEDS ORDERED: ONDANSETRON *ODT* 4 MG TABLET SL PRN (22:45)
[2018-12-18] MEDS ORDERED: METHOCARBAMOL 500 MG TABLET PO PRN (22:45)
[2018-12-18] MEDS ORDERED: MAGNESIUM CITRATE 300 ML BOTTLE PO PRN (22:45)
[2018-12-18] MEDS ORDERED: MAGNESIUM HYDROX 2400MG/30ML ORAL SUSPENSION 30 ML CUP PO PRN (22:45)
[2018-12-18] MEDS ORDERED: MELATONIN 5 MG TABLETS PO PRN (22:45)
[2018-12-18] MEDS ORDERED: MAG HYDROX/AL HYDROX/SIMETH 30 ML UNIT-DOSE CUP PO PRN (22:45)
[2018-12-18] MEDS ORDERED: chlordiazePOXIDE HCL 25 MG CAPSULE PO PRN (22:45)
[2018-12-18] MEDS ORDERED: MENTHOL/PHENOL 1 EACH UD MM PRN (22:45)
[2018-12-18] MEDS ORDERED: BISMUTH SUBSALICYLATE 524 MG/30 ML UD PO PRN (22:45)
[2018-12-18] MEDS ORDERED: traZODone HCL 50 MG TABLET (FP) PO ONE (23:00)
[2018-12-19] MEDS: chlordiazePOXIDE HCL 25 MG CAPSULE PO SCH ×5 (00:20→22:07)
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
[2018-12-19 10:43] LABS: ALBUMIN 3.6 g/dl (3.4-5.0); BILIRUBIN,TOTAL 0.5 mg/dL (0.2-1); BLOOD UREA NITROGEN 10.8 mg/dL (7-18); CALCIUM 9.1 mg/dL (8.5-10.1); CREATININE 0.8 mg/dL (0.55-1.3); TOT PROT 6.5 g/dl (6.4-8.2)
[2018-12-19] MEDS: PRENATAL VITAMINS W/ FOLIC ACID TABLET (FP) PO SCH (10:47)
[2018-12-19 10:50] LABS: HEMATOCRIT 36.7 % (32.4-45.2); HEMOGLOBIN 12.3 GM/dL (10.7-15.3); MCH 31.5 pg (25.7-33.7); MCHC 33.5 g/dl (32.0-36.0); MEAN CELL VOLUME 94.2 fl (80-96); MEAN PLT VOLUME 7.8 fl (7.5-11.1); PLATELET COUNT 264 K/MM3 (134-434); RBC 3.89 M/mm3 (3.60-5.2); RDW 14.1 % (11.6-15.6)
--- NOTE | 2018-12-19 11:41 | PN ---
S CIWA - CIWA Score Nausea/Vomitin-No Nausea/No Vomiting Muscle Tremors: 3 Anxiety: 3 Agitation: 3 Paroxysmal Sweats: 3 Orientation: 0-Oriented Tacttile Disturbances: 0-None Auditory Disturbances: 0-None Visual Disturbances: 0-None Headache: 0-None Present CIWA-Ar Total Score: 12 S Progress Note (SOAP) Subjective: tired sweats chills last night irritable interrupted sleep Objective: 12/19/18 11:40 Vital Signs Temperature 98.1 F 12/19/18 09:56 Pulse Rate 86 12/19/18 09:56 Respiratory Rate 18 12/19/18 09:56 Blood Pressure 114/54 L 12/19/18 09:56 O2 Sat by Pulse Oximetry (%) Laboratory Tests 12/19/18 12/19/18 12/19/18 07:20 07:20 07:20 WBC 4.0 RBC 3.89 Hgb 12.3 Hct 36.7 MCV 94.2 MCH 31.5 MCHC 33.5 RDW 14.1 Plt Count 264 MPV 7.8 Sodium 139 Potassium 4.0 Chloride 102 Carbon Dioxide 32 Anion Gap 5 L BUN 10.8 Creatinine 0.8 Est GFR (CKD-EPI)AfAm 94.85 Est GFR (CKD-EPI)NonAf 81.84 Random Glucose 100 Calcium 9.1 Total Bilirubin 0.5 AST 45 H ALT 33 Alkaline Phosphatase 58 Total Protein 6.5 Albumin 3.6 RPR Titer Nonreactive aaox3 ambulating no acute distress labs noted Assessment: 12/19/18 11:40 withdrawal sx Plan: continue detox increase fluids
--- NOTE | 2018-12-19 12:22 | EKG ---
Test Reason : Blood Pressure : / mmHG Vent. Rate : 093 BPM Atrial Rate : 093 BPM P-R Int : 174 ms QRS Dur : 082 ms QT Int : 386 ms P-R-T Axes : 047 037 042 degrees QTc Int : 479 ms NORMAL SINUS RHYTHM NORMAL ECG WHEN COMPARED WITH ECG OF 12-AUG-2017 15:42, NO SIGNIFICANT CHANGE WAS FOUND Confirmed by MD PRETTY, ABILIO ([id number]) on 12/19/2018 12:21:53 PM Referred By: DAVID MARTINEZ Confirmed By:ABILIO OLSEN MD
[2018-12-19 12:31] LABS: EPI CELLS 0.6 /HPF (0-5/HPF); HYALINE CASTS 2 /lpf (0-8); URINE APPEARANCE CLEAR; URINE BACTERIA 20.6 /hpf (NEGATIVE); URINE BILIRUBIN NEGATIVE (NEGATIVE); URINE COLOR YELLOW; URINE GLUCOSE (UA) NEGATIVE (NEGATIVE); URINE KETONE NEGATIVE (NEGATIVE); URINE LEUK ESTERASE 2+ (NEGATIVE); URINE NITRITE NEGATIVE (NEGATIVE); URINE PROTEIN NEGATIVE (NEGATIVE); URINE RBC 1 /hpf (0-4); URINE UROBILINOGEN 0.2 mg/dL (0.2-1.0); URINE WBC 35 /hpf (0-5)
[2018-12-19] MEDS: ESCITALOPRAM OXALATE 20 MG TABLET (FP) PO SCH (14:39)
[2018-12-19] MEDS ORDERED: traZODone HCL 50 MG TABLET (FP) PO SCH (22:00)
[2018-12-19] MEDS ORDERED: THIAMINE HCL 100 MG TABLET (FP) PO SCH (22:00)
[2018-12-20] MEDS: chlordiazePOXIDE HCL 25 MG CAPSULE PO SCH ×3 (05:55→17:57)
[2018-12-20] MEDS: PRENATAL VITAMINS W/ FOLIC ACID TABLET (FP) PO SCH (10:38)
[2018-12-20] MEDS: ESCITALOPRAM OXALATE 20 MG TABLET (FP) PO SCH (10:38)
--- NOTE | 2018-12-20 12:15 | PN ---
S CIWA - CIWA Score Nausea/Vomitin-No Nausea/No Vomiting Muscle Tremors: 2 Anxiety: 2 Agitation: 2 Paroxysmal Sweats: 2 Orientation: 0-Oriented Tacttile Disturbances: 0-None Auditory Disturbances: 0-None Visual Disturbances: 0-None Headache: 0-None Present CIWA-Ar Total Score: 8 S Progress Note (SOAP) Subjective: sweats Objective: 12/20/18 12:14 Vital Signs Temperature 97.7 F 12/20/18 12:10 Pulse Rate 96 H 12/20/18 12:10 Respiratory Rate 18 12/20/18 12:10 Blood Pressure 109/69 12/20/18 12:10 O2 Sat by Pulse Oximetry (%) Laboratory Tests 12/18/18 12/19/18 12/19/18 22:33 07:20 07:20 WBC 4.0 RBC 3.89 Hgb 12.3 Hct 36.7 MCV 94.2 MCH 31.5 MCHC 33.5 RDW 14.1 Plt Count 264 MPV 7.8 Sodium 139 Potassium 4.0 Chloride 102 Carbon Dioxide 32 Anion Gap 5 L BUN 10.8 Creatinine 0.8 Est GFR (CKD-EPI)AfAm 94.85 Est GFR (CKD-EPI)NonAf 81.84 Random Glucose 100 Calcium 9.1 Total Bilirubin 0.5 AST 45 H ALT 33 Alkaline Phosphatase 58 Total Protein 6.5 Albumin 3.6 Urine Color Urine Appearance Urine pH Ur Specific [place] Urine Protein Urine Glucose (UA) Urine Ketones Urine Blood Urine Nitrite Urine Bilirubin Urine Urobilinogen Ur Leukocyte Esterase Urine WBC (Auto) Urine RBC (Auto) Urine Casts (Auto) U Pathogenic Cast Auto U Epithel Cells (Auto) U Sm Round Cell (Auto) Urine Crystals (Auto) Urine Bacteria (Auto) POC Urine HCG, Qual Negative RPR Titer 12/19/18 12/19/18 07:20 07:20 WBC RBC Hgb Hct MCV MCH MCHC RDW Plt Count MPV Sodium Potassium Chloride Carbon Dioxide Anion Gap BUN Creatinine Est GFR (CKD-EPI)AfAm Est GFR (CKD-EPI)NonAf Random Glucose Calcium Total Bilirubin AST ALT Alkaline Phosphatase Total Protein Albumin Urine Color Yellow Urine Appearance Clear Urine pH 7.0 D Ur Specific [place] 1.011 Urine Protein Negative Urine Glucose (UA) Negative Urine Ketones Negative Urine Blood Negative Urine Nitrite Negative Urine Bilirubin Negative Urine Urobilinogen 0.2 Ur Leukocyte Esterase 2+ H Urine WBC (Auto) 35 Urine RBC (Auto) 1 Urine Casts (Auto) 2 U Pathogenic Cast Auto No Result Required. U Epithel Cells (Auto) 0.6 U Sm Round Cell (Auto) No Result Required. Urine Crystals (Auto) No Result Required. Urine Bacteria (Auto) 20.6 POC Urine HCG, Qual RPR Titer Nonreactive labs noted pt denies of having a UTI aaox3 ambulating no acute distress Assessment: 12/20/18 12:15 mild withdrawal sx Plan: continue detox increase fluids
--- NOTE | 2018-12-20 17:15 | PN ---
S Progress Note Note: pt states her daughter is graduating and wants to go home. Pt is not demonstrating any s/s of withdrawals. Pt was advised to stay and complete detox to avoid any risk of relapse, DT's, seizures but insisted on leaving.
--- NOTE | 2018-12-20 17:17 | DS ---
[facility] Detox Discharge Summary Admission Date: 12/18/18 Discharge Date: 12/20/18 - History Present History: Alcohol Dependence - Physical Exam Results Vital Signs: Vital Signs Temperature 97.9 F 12/20/18 15:12 Pulse Rate 93 H 12/20/18 15:12 Respiratory Rate 18 12/20/18 15:12 Blood Pressure 112/63 12/20/18 15:12 O2 Sat by Pulse Oximetry (%) - Treatment Hospital Course: Detox Protocol Followed, Detoxed Safely, Responded well, Discharged Condition Good, Rehab Referral Accepted - Medication Discharge Medications: Ambulatory Orders Escitalopram Oxalate [Lexapro -] 20 mg PO DAILY 08/12/17 Trazodone HCl 150 mg PO HS 08/12/17 Bupropion HCl [Wellbutrin -] 100 mg PO DAILY 12/18/18 - Diagnosis (1) Alcohol dependence with uncomplicated withdrawal Current Visit: Yes Status: Chronic (2) Alcohol-induced mood disorder Current Visit: Yes Status: Acute (3) Alcohol-induced sleep disorder Current Visit: Yes Status: Acute (4) Nicotine dependence Current Visit: Yes Status: Chronic Qualifiers: Nicotine product type: cigarettes Substance use status: uncomplicated Qualified Code(s): F17.210 - Nicotine dependence, cigarettes, uncomplicated (5) Rosacea Current Visit: Yes Status: Chronic (6) Insomnia Current Visit: No Status: Acute (7) Insomnia secondary to depression with anxiety Current Visit: No Status: Acute (8) Syncope Current Visit: No Status: Acute (9) MDD (major depressive disorder) Current Visit: No Status: Chronic Qualifiers: Major depression recurrence: recurrent Active/Remission status: in partial remission Qualified Code(s): F33.41 - Major depressive disorder, recurrent, in partial remission - AMA Did Patient Leave Against Medical Advice: Yes (going home.)
[2018-12-20 17:51] VITALS: BP 130/67; PULSE 79; TEMP 98.2
[2018-12-20] MEDS ORDERED: chlordiazePOXIDE HCL 10 MG CAPSULE PO PRN (23:00)
[2018-12-20] MEDS ORDERED: chlordiazePOXIDE HCL 10 MG CAPSULE PO SCH (23:00)
[2018-12-21] MEDS ORDERED: chlordiazePOXIDE HCL 10 MG CAPSULE PO SCH (23:00)
== END 2018-12-20 17:25 | disposition left against medical advice (07) | DRG 770 ==
LOC: YASAS 19:26 → Y6N 23:42
PROVIDERS: ADMIT Surgery; ATTEND Surgery
PROC: HZ2ZZZZ Detoxification Services for Substance Abuse Treatment (ICD-10-PCS; principal; 2018-12-18)
DX: F10.230 Alcohol dependence with withdrawal, uncomplicated (principal); F10.24 Alcohol dependence with alcohol-induced mood disorder; F10.282 Alcohol dependence with alcohol-induced sleep disorder; F17.210 Nicotine dependence, cigarettes, uncomplicated; F51.05 Insomnia due to other mental disorder; F33.41 Major depressive disorder, recurrent, in partial remission; L71.9 Rosacea, unspecified
CPT/HCPCS: 36415; 80053; 81003; 81025; 85027; 86593; 93005; 93010

== ENCOUNTER 2020-04-23 12:34 | Inpatient (IN) | payer OTHER ==
--- NOTE | 2020-04-23 13:00 | BHS.RME ---
2019 N Coronavirus Screen - COVID-19 Screening Questions Dx of COVID-19 or had a positive test in the last 4 weeks?: No Contact with known/suspected COVID patient in last 14 days?: No Any of these symptoms or contact with someone who has?: None Traveled domestically/internationally in the last 14 days?: No Screen score: 0 Screen result: Further Evaluation Substance Use & Tx History - Substance Use History Alcohol Substance amount: 4 shots vodka + 4 beers 24 oz Frequency of use: Daily Substance route: Oral Date of Last Use: 04/22/20 (started age 18) Nicotine Substance amount: 4 ciggts Frequency of use: Daily Substance route: Smoking Date of Last Use: 04/23/20 (started age 14) Physical/Psych/Mental Status - Behavior General Behavior: Increased activity (restlessness, agitation) Eye Contact: Normal - Cooperativeness Cooperativeness: Cooperative - Thinking Thought Processes: Tight, Logical, Goal Directed - Physical Health Problems Is patient presently having any pain?: No Does patient presently have any injuries (include location): No Does patient currently have a fever: No Is patient : No CIWA Nausea/Vomitin Muscle Tremors: 4-Moderate,w/Arms Extend Anxiety: 5 Agitation: 4-Moderately Restless Paroxysmal Sweats: 4-Forehead w/Sweat Beads Orientation: 3-Disoriented Date>2 days Tacttile Disturbances: 0-None Auditory Disturbances: 0-None Visual Disturbances: 0-None Headache: 0-None Present CIWA-Ar Total Score: 23
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
[2020-04-23 13:36] VITALS: BMI 25.1
[2020-04-23] MEDS ORDERED: METHOCARBAMOL 500 MG TABLET PO PRN (13:41)
[2020-04-23] MEDS ORDERED: MAGNESIUM HYDROX 2400MG/30ML ORAL SUSPENSION 30 ML CUP PO PRN (13:41)
[2020-04-23] MEDS ORDERED: chlordiazePOXIDE HCL 25 MG CAPSULE PO PRN (13:41)
[2020-04-23] MEDS ORDERED: MAGNESIUM CITRATE 300 ML BOTTLE PO PRN (13:41)
[2020-04-23] MEDS ORDERED: ACETAMINOPHEN 325 MG TABLET (FP) PO PRN ×2 (13:41)
[2020-04-23] MEDS ORDERED: ONDANSETRON *ODT* 4 MG TABLET SL PRN (13:41)
[2020-04-23] MEDS ORDERED: MAG HYDROX/AL HYDROX/SIMETH 30 ML UNIT-DOSE CUP PO PRN (13:41)
[2020-04-23] MEDS ORDERED: BISMUTH SUBSALICYLATE 524 MG/30 ML UD PO PRN (13:41)
[2020-04-23] MEDS ORDERED: IBUPROFEN 400 MG TABLET (FP) PO PRN (13:41)
[2020-04-23] MEDS: hydrOXYzine PAMOATE 25 MG CAPSULE (FP) PO SCH ×3 (14:23→22:18)
[2020-04-23 17:11] LABS: HEMATOCRIT 39.8 % (32.4-45.2); HEMOGLOBIN 13.6 GM/dL (10.7-15.3); MCH 33.5 pg (25.7-33.7); MCHC 34.2 g/dl (32.0-36.0); MEAN CELL VOLUME 97.9 fl (80-96); MEAN PLT VOLUME 8.1 fl (7.5-11.1); PLATELET COUNT 374 K/MM3 (134-434); RBC 4.07 M/mm3 (3.60-5.2); RDW 14.2 % (11.6-15.6); WHITE BLOOD COUNT 8.7 K/mm3 (4.0-10.0)
[2020-04-23 17:13] LABS: POTASSIUM 4.1 mmol/L (3.5-5.1)
[2020-04-23 17:15] LABS: CALCIUM 9.6 mg/dL (8.5-10.1)
[2020-04-23 17:16] LABS: BLOOD UREA NITROGEN 4.6 mg/dL (7-18)
[2020-04-23] MEDS: chlordiazePOXIDE HCL 25 MG CAPSULE PO SCH ×2 (17:18→22:17)
[2020-04-23 17:19] LABS: CREATININE 0.9 mg/dL (0.55-1.3)
[2020-04-23 17:21] LABS: BILIRUBIN,TOTAL 1.2 mg/dL (0.2-1); TOT PROT 7.8 g/dl (6.4-8.2)
[2020-04-23] MEDS: THIAMINE HCL 100 MG TABLET (FP) PO SCH (22:18)
[2020-04-23] MEDS: MELATONIN 5 MG TABLETS PO SCH (22:18)
[2020-04-23] MEDS: MENTHOL/PHENOL 1 EACH UD MM PRN (22:23)
[2020-04-24] MEDS: hydrOXYzine PAMOATE 25 MG CAPSULE (FP) PO SCH ×5 (05:59→22:34)
[2020-04-24] MEDS: chlordiazePOXIDE HCL 25 MG CAPSULE PO SCH ×4 (05:59→22:30)
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
--- NOTE | 2020-04-24 09:21 | PN ---
S CIWA - CIWA Score Nausea/Vomitin-Mild Nausea/No Vomiting Muscle Tremors: 4-Moderate,w/Arms Extend Anxiety: 4-Mod. Anxious/Guarded Agitation: 2 Paroxysmal Sweats: 1-Minimal Palms Moist Orientation: 1-Uncertain about Date (day of week) Tacttile Disturbances: 1-Very Mild Itch/Numbness Auditory Disturbances: 0-None Visual Disturbances: 2-Mild Sensitivity Headache: 2-Mild CIWA-Ar Total Score: 18 BHS Progress Note (SOAP) Subjective: 60 years old female was admitted on 04/23/20 for alcohol withdrawal sx management treating with librium detox regiment feels tired resting in bed limited conversation with staff health teaching on hygiene and nutrition Objective: 04/24/20 09:24 Vital Signs - 24 hr 04/23/20 04/23/20 04/23/20 13:23 14:26 16:35 Temperature 97.6 F 97.3 F L 97.1 F L Pulse Rate 125 H 119 H 108 H Respiratory 16 19 18 Rate Blood Pressure 131/70 130/77 125/60 O2 Sat by Pulse 98 Oximetry (%) 04/23/20 04/24/20 04/24/20 20:21 06:41 08:37 Temperature 97.3 F L 97.1 F L 96.9 F L Pulse Rate 112 H 86 92 H Respiratory 18 16 18 Rate Blood Pressure 117/77 113/61 100/61 O2 Sat by Pulse 96 98 98 Oximetry (%) Laboratory Tests 04/23/20 04/23/20 04/23/20 13:42 13:42 13:42 WBC 8.7 RBC 4.07 Hgb 13.6 Hct 39.8 MCV 97.9 H MCH 33.5 MCHC 34.2 RDW 14.2 Plt Count 374 D MPV 8.1 Sodium 131 L Potassium 4.1 Chloride 94 L Carbon Dioxide 28 Anion Gap 9 BUN 4.6 L Creatinine 0.9 Est GFR (CKD-EPI)AfAm 81.11 Est GFR (CKD-EPI)NonAf 69.99 Random Glucose 192 H Calcium 9.6 Total Bilirubin 1.2 H AST 90 H ALT 37 Alkaline Phosphatase 81 Total Protein 7.8 Albumin 4.0 Syphilis Serology Non-reactive 04/24/20 09:25 covid pending glucose elevation fasting glucose pending Assessment: 10/22/20 09:27 alcohol withdrawal Plan: librium regiment
[2020-04-24] MEDS ORDERED: ESCITALOPRAM OXALATE 10 MG TABLET ONE (09:27)
[2020-04-24] MEDS: PRENATAL VITAMINS W/ FOLIC ACID TABLET (FP) PO SCH (10:19)
[2020-04-24] MEDS: ESCITALOPRAM OXALATE 20 MG TABLET PO SCH (10:19)
[2020-04-24] MEDS: NICOTINE 7 MG/24 HOURS TOPICAL PATCH TD SCH (10:20)
[2020-04-24] MEDS: traZODone HCL 50 MG TABLET (FP) PO SCH (22:31)
[2020-04-24] MEDS: THIAMINE HCL 100 MG TABLET (FP) PO SCH (22:31)
[2020-04-24] MEDS: MELATONIN 5 MG TABLETS PO SCH (22:35)
[2020-04-25] MEDS: hydrOXYzine PAMOATE 25 MG CAPSULE (FP) PO SCH ×5 (05:17→22:13)
[2020-04-25] MEDS: chlordiazePOXIDE HCL 25 MG CAPSULE PO SCH ×4 (05:17→22:13)
[2020-04-25] MEDS: MENTHOL/PHENOL 1 EACH UD MM PRN (05:38)
--- NOTE | 2020-04-25 09:20 | PN ---
[facility] CIWA - CIWA Score Nausea/Vomitin-No Nausea/No Vomiting Muscle Tremors: None Anxiety: 2 Agitation: 0-Normal Activity Paroxysmal Sweats: No Perspiration Orientation: 2-Disoriented Date<2 days Tacttile Disturbances: 0-None Auditory Disturbances: 0-None Visual Disturbances: 0-None Headache: 0-None Present CIWA-Ar Total Score: 4 BHS Progress Note (SOAP) Subjective: Pt states she plans to leave tomorrow, go to a beach house with her ex . Asking if she can have a Vistaril rx upon discharge. Objective: 04/25/20 09:18 PE Gnl: WDWN, in no distress MS: mild anxiety Motor: moves limbs well Coord; intact Gait: deferred Laboratory Tests 04/23/20 04/23/20 04/23/20 13:40 13:42 13:42 WBC 8.7 RBC 4.07 Hgb 13.6 Hct 39.8 MCV 97.9 H MCH 33.5 MCHC 34.2 RDW 14.2 Plt Count 374 D MPV 8.1 Sodium 131 L Potassium 4.1 Chloride 94 L Carbon Dioxide 28 Anion Gap 9 BUN 4.6 L Creatinine 0.9 Est GFR (CKD-EPI)AfAm 81.11 Est GFR (CKD-EPI)NonAf 69.99 Random Glucose 192 H Calcium 9.6 Total Bilirubin 1.2 H AST 90 H ALT 37 Alkaline Phosphatase 81 Total Protein 7.8 Albumin 4.0 Syphilis Serology COVID-19 (TIM) Not detected 04/23/20 13:42 WBC RBC Hgb Hct MCV MCH MCHC RDW Plt Count MPV Sodium Potassium Chloride Carbon Dioxide Anion Gap BUN Creatinine Est GFR (CKD-EPI)AfAm Est GFR (CKD-EPI)NonAf Random Glucose Calcium Total Bilirubin AST ALT Alkaline Phosphatase Total Protein Albumin Syphilis Serology Non-reactive COVID-19 (TIM) Home Medication List Medication Instructions Recorded Confirmed Type Escitalopram Oxalate [Lexapro -] 20 mg PO DAILY 08/12/17 04/23/20 History Trazodone HCl 150 mg PO HS 08/12/17 04/23/20 History Bupropion HCl [Wellbutrin -] 100 mg PO DAILY 12/18/18 04/23/20 History Active Medications Generic Name Dose Route Start Last Admin Trade Name Freq PRN Reason Stop Dose Admin Acetaminophen 650 mg 04/23/20 13:41 Tylenol - PO Q6H PRN PAIN LEVEL 4 - 6 Acetaminophen 650 mg 04/23/20 13:41 Tylenol - PO Q6H PRN FEVER Al Hydroxide/Mg Hydroxide 30 ml 04/23/20 13:41 Mylanta Oral Suspension - PO Q6H PRN DYSPEPSIA Bismuth Subsalicylate 524 mg 04/23/20 13:41 Pepto-Bismol - PO Q1H PRN DIARRHEA Bupropion HCl 150 mg 04/24/20 10:00 04/24/20 10:19 Wellbutrin Xl - PO 150 mg DAILY RHIANNA Administration Chlordiazepoxide HCl 25 mg 04/25/20 05:00 04/25/20 05:17 Librium - PO 04/25/20 23:01 25 mg [id number] RHIANNA Administration Chlordiazepoxide HCl 25 mg 04/23/20 13:41 04/23/20 14:23 Librium - PO 04/25/20 23:59 25 mg Q4H PRN Administration WITHDRAWAL(CONT SUBST) Chlordiazepoxide HCl 10 mg 04/26/20 05:00 Librium - PO 04/26/20 23:01 [id number] RHIANNA Chlordiazepoxide HCl 10 mg 04/27/20 05:00 Librium - PO 04/27/20 17:01 Q12H RHIANNA Chlordiazepoxide HCl 10 mg 04/26/20 00:00 Librium - PO 04/27/20 00:00 Q4H PRN WITHDRAWAL(CONT SUBST) Chlordiazepoxide HCl 10 mg 04/28/20 05:00 Librium - PO 04/28/20 05:01 ONCE@0500 ONE Escitalopram Oxalate 20 mg 04/24/20 10:00 04/24/20 10:19 Lexapro - PO 20 mg DAILY RHIANNA Administration Eucalyptus/Menthol/Phenol/Sorbitol 1 each 04/23/20 13:41 04/25/20 05:38 Cepastat Lozenge - MM 04/29/20 13:41 1 each Q4H PRN Administration SORE THROAT Hydroxyzine Pamoate 25 mg 04/23/20 14:00 04/25/20 05:17 Vistaril - PO 04/29/20 13:41 25 mg Q4HWA RHIANNA Administration Ibuprofen 400 mg 04/23/20 13:41 Motrin - PO Q6H PRN PAIN LEVEL 1 - 3 Magnesium Citrate 300 ml 04/23/20 13:41 Citroma - PO Q48H PRN CONSTIPATION Magnesium Hydroxide 30 ml 04/23/20 13:41 Milk Of Magnesia - PO PRN PRN CONSTIPATION Melatonin 5 mg 04/23/20 22:00 04/24/20 22:35 Melatonin PO 5 mg HS RHIANNA Administration Methocarbamol 500 mg 04/23/20 13:41 04/23/20 14:23 Robaxin - PO 04/29/20 13:41 500 mg Q6H PRN Administration MUSCLE SPASMS Nicotine 7 mg 04/24/20 10:00 04/24/20 10:20 Nicoderm Patch - TD 7 mg DAILY RHIANNA Administration Nicotine Polacrilex 2 mg 04/23/20 13:41 Nicorette Gum - BUC Q2H PRN NICOTINE REPLACEMENT RX Ondansetron HCl 4 mg 04/23/20 13:41 Zofran Odt - SL Q8H PRN Nausea/Vomiting Multivit/Folic Acid/Iron 1 tab 04/24/20 10:00 04/24/20 10:19 Vitamins (Sjr) - PO 1 tab DAILY RHIANNA Administration Thiamine HCl 100 mg 04/23/20 22:00 04/24/20 22:31 Vitamin B1 - PO 100 mg HS RHIANNA Administration Trazodone HCl 150 mg 04/24/20 22:00 04/24/20 22:31 Desyrel - PO 150 mg HS RHIANNA Administration Vital Signs Temperature 97.3 F L 04/25/20 08:47 Pulse Rate 100 H 04/25/20 08:47 Respiratory Rate 16 04/25/20 08:47 Blood Pressure 117/63 04/25/20 08:47 O2 Sat by Pulse Oximetry (%) 97 04/25/20 08:47 04/25/20 09:21 Assessment: 04/25/20 09:19 1. Alcohol use disorder 04/25/20 09:21 2. Seen by Psychiatry: alcohol sleep disorder, depression Plan: 1. Librium detox protocol, projected completion on Tuesday, not tomorrow, will discuss with pt and her counselor 2. Per Psychiatry: pt on Lexapro, Wellbutrin, Trazodone
[2020-04-25] MEDS ORDERED: ESCITALOPRAM OXALATE 10 MG TABLET ONE (09:30)
[2020-04-25] MEDS: ESCITALOPRAM OXALATE 20 MG TABLET PO SCH (10:16)
[2020-04-25] MEDS: NICOTINE 7 MG/24 HOURS TOPICAL PATCH TD SCH (10:17)
[2020-04-25] MEDS: PRENATAL VITAMINS W/ FOLIC ACID TABLET (FP) PO SCH (10:17)
[2020-04-25] MEDS: NICOTINE POLACRILEX 2 MG GUM BUC PRN ×2 (13:34→20:26)
--- NOTE | 2020-04-25 15:35 | PN ---
[facility] Progress Note Note: Called by RN, pt complaining of multiple oral ulcers "cold sores" Nurse has examined pt, ulcers visible PE, Dr. Hamlin Erythema lower labial frenulum, pt requesting chlorosceptic spray Imp 1. Oral irritation Plan 1. chlorosceptic spray
[2020-04-25] MEDS: PHENOL 177 ML SPRAY BOTTLE MM PRN (20:27)
[2020-04-25] MEDS: THIAMINE HCL 100 MG TABLET (FP) PO SCH (22:12)
[2020-04-25] MEDS: traZODone HCL 50 MG TABLET (FP) PO SCH (22:12)
[2020-04-25] MEDS: MELATONIN 5 MG TABLETS PO SCH (22:13)
[2020-04-26] MEDS ORDERED: chlordiazePOXIDE HCL 10 MG CAPSULE PO PRN
[2020-04-26] MEDS: chlordiazePOXIDE HCL 10 MG CAPSULE PO SCH ×2 (05:47→10:03)
[2020-04-26] MEDS: hydrOXYzine PAMOATE 25 MG CAPSULE (FP) PO SCH ×2 (05:47→10:03)
[2020-04-26] MEDS ORDERED: ESCITALOPRAM OXALATE 10 MG TABLET ONE (08:19)
[2020-04-26 09:21] VITALS: BP 146/75; PULSE 104; TEMP 96.9
[2020-04-26] MEDS: ESCITALOPRAM OXALATE 20 MG TABLET PO SCH (10:03)
[2020-04-26] MEDS: NICOTINE 7 MG/24 HOURS TOPICAL PATCH TD SCH (10:03)
[2020-04-26] MEDS: PRENATAL VITAMINS W/ FOLIC ACID TABLET (FP) PO SCH (10:03)
[2020-04-26] MEDS: PHENOL 177 ML SPRAY BOTTLE MM PRN (10:05)
--- NOTE | 2020-04-26 11:20 | PN ---
[facility] CIWA - CIWA Score Nausea/Vomitin-No Nausea/No Vomiting Muscle Tremors: None Anxiety: 2 Agitation: 0-Normal Activity Paroxysmal Sweats: 2 Orientation: 0-Oriented Tacttile Disturbances: 0-None Auditory Disturbances: 0-None Visual Disturbances: 0-None Headache: 0-None Present CIWA-Ar Total Score: 4 BHS Progress Note (SOAP) Subjective: c/o mild withdrawal symptoms. Objective: 04/26/20 11:21 Vital Signs 04/26/20 04/26/20 06:36 08:36 Temperature 98.6 F 96.9 F L Pulse Rate 77 104 H Respiratory 18 18 Rate Blood Pressure 110/68 146/75 O2 Sat by Pulse 97 Oximetry (%) Laboratory Last Values WBC 8.7 K/mm3 (4.0-10.0) 04/23/20 13:42 RBC 4.07 M/mm3 (3.60-5.2) 04/23/20 13:42 Hgb 13.6 GM/dL (10.7-15.3) 04/23/20 13:42 Hct 39.8 % (32.4-45.2) 04/23/20 13:42 MCV 97.9 fl (80-96) H 04/23/20 13:42 MCH 33.5 pg (25.7-33.7) 04/23/20 13:42 MCHC 34.2 g/dl (32.0-36.0) 04/23/20 13:42 RDW 14.2 % (11.6-15.6) 04/23/20 13:42 Plt Count 374 K/MM3 (134-434) D 04/23/20 13:42 MPV 8.1 fl (7.5-11.1) 04/23/20 13:42 Sodium 131 mmol/L (136-145) L 04/23/20 13:42 Potassium 4.1 mmol/L (3.5-5.1) 04/23/20 13:42 Chloride 94 mmol/L (98-107) L 04/23/20 13:42 Carbon Dioxide 28 mmol/L (21-32) 04/23/20 13:42 Anion Gap 9 MMOL/L (8-16) 04/23/20 13:42 BUN 4.6 mg/dL (7-18) L 04/23/20 13:42 Creatinine 0.9 mg/dL (0.55-1.3) 04/23/20 13:42 Est GFR (CKD-EPI)AfAm 81.11 04/23/20 13:42 Est GFR (CKD-EPI)NonAf 69.99 04/23/20 13:42 Random Glucose 192 mg/dL (74-106) H 04/23/20 13:42 Calcium 9.6 mg/dL (8.5-10.1) 04/23/20 13:42 Total Bilirubin 1.2 mg/dL (0.2-1) H 04/23/20 13:42 AST 90 U/L (15-37) H 04/23/20 13:42 ALT 37 U/L (13-61) 04/23/20 13:42 Alkaline Phosphatase 81 U/L (45-117) 04/23/20 13:42 Total Protein 7.8 g/dl (6.4-8.2) 04/23/20 13:42 Albumin 4.0 g/dl (3.4-5.0) 04/23/20 13:42 Syphilis Serology Non-reactive (NONREACTIVE) 04/23/20 13:42 COVID-19 (TIM) Not detected (Not Detected) 04/23/20 13:40 Labs noted. Assessment: Pt is AOX3, in no acute respiratory distress. Full ROM, and ambulating in the unit. Mild Withdrawal symptoms. Plan: continue detox.
--- NOTE | 2020-04-26 12:04 | DS ---
[facility] Detox Discharge Summary Admission Date: 04/23/20 Discharge Date: 04/26/20 - History Present History: Alcohol Dependence Additional Comments: Pt is medically cleared and discharged. Pt completed the detox protocol. Pt is encouraged to follow-up with an outpatient CD program and also to follow-up with her pmd which she verbalized understanding. Pt is AOX3, in no acute respiratory distress, Full ROM, and ambulatory. Pertinent Past History: h/o alcohol use disorder. - Physical Exam Results Vital Signs: Vital Signs Temperature 96.9 F L 04/26/20 08:36 Pulse Rate 104 H 04/26/20 08:36 Respiratory Rate 18 04/26/20 08:36 Blood Pressure 146/75 04/26/20 08:36 O2 Sat by Pulse Oximetry (%) 97 04/26/20 06:36 Vital Signs 04/26/20 04/26/20 06:36 08:36 Temperature 98.6 F 96.9 F L Pulse Rate 77 104 H Respiratory 18 18 Rate Blood Pressure 110/68 146/75 O2 Sat by Pulse 97 Oximetry (%) Laboratory Last Values WBC 8.7 K/mm3 (4.0-10.0) 04/23/20 13:42 RBC 4.07 M/mm3 (3.60-5.2) 04/23/20 13:42 Hgb 13.6 GM/dL (10.7-15.3) 04/23/20 13:42 Hct 39.8 % (32.4-45.2) 04/23/20 13:42 MCV 97.9 fl (80-96) H 04/23/20 13:42 MCH 33.5 pg (25.7-33.7) 04/23/20 13:42 MCHC 34.2 g/dl (32.0-36.0) 04/23/20 13:42 RDW 14.2 % (11.6-15.6) 04/23/20 13:42 Plt Count 374 K/MM3 (134-434) D 04/23/20 13:42 MPV 8.1 fl (7.5-11.1) 04/23/20 13:42 Sodium 131 mmol/L (136-145) L 04/23/20 13:42 Potassium 4.1 mmol/L (3.5-5.1) 04/23/20 13:42 Chloride 94 mmol/L (98-107) L 04/23/20 13:42 Carbon Dioxide 28 mmol/L (21-32) 04/23/20 13:42 Anion Gap 9 MMOL/L (8-16) 04/23/20 13:42 BUN 4.6 mg/dL (7-18) L 04/23/20 13:42 Creatinine 0.9 mg/dL (0.55-1.3) 04/23/20 13:42 Est GFR (CKD-EPI)AfAm 81.11 04/23/20 13:42 Est GFR (CKD-EPI)NonAf 69.99 04/23/20 13:42 Random Glucose 192 mg/dL (74-106) H 04/23/20 13:42 Calcium 9.6 mg/dL (8.5-10.1) 04/23/20 13:42 Total Bilirubin 1.2 mg/dL (0.2-1) H 04/23/20 13:42 AST 90 U/L (15-37) H 04/23/20 13:42 ALT 37 U/L (13-61) 04/23/20 13:42 Alkaline Phosphatase 81 U/L (45-117) 04/23/20 13:42 Total Protein 7.8 g/dl (6.4-8.2) 04/23/20 13:42 Albumin 4.0 g/dl (3.4-5.0) 04/23/20 13:42 Syphilis Serology Non-reactive (NONREACTIVE) 04/23/20 13:42 COVID-19 (TIM) Not detected (Not Detected) 04/23/20 13:40 Labs noted. Pertinent Admission Physical Exam Findings: withdrawal symptoms. - Treatment Hospital Course: Detox Protocol Followed, Detoxed Safely, Responded well, Discharged Condition Good - Medication Discharge Medications: Ambulatory Orders Escitalopram Oxalate [Lexapro -] 20 mg PO DAILY 08/12/17 Trazodone HCl 150 mg PO HS 08/12/17 Bupropion HCl [Wellbutrin -] 100 mg PO DAILY 12/18/18 - Diagnosis (1) Alcohol dependence with uncomplicated withdrawal Current Visit: No Status: Acute (2) Nicotine dependence Current Visit: No Status: Chronic Qualifiers: Nicotine product type: cigarettes Substance use status: uncomplicated Qualified Code(s): F17.210 - Nicotine dependence, cigarettes, uncomplicated - AMA Did Patient Leave Against Medical Advice: No
[2020-04-27] MEDS ORDERED: chlordiazePOXIDE HCL 10 MG CAPSULE PO SCH (05:00)
[2020-04-28] MEDS ORDERED: chlordiazePOXIDE HCL 10 MG CAPSULE PO ONE (05:00)
== END 2020-04-26 12:46 | disposition home or self-care (01) | DRG 775 ==
LOC: YASAS 12:34 → Y3N 13:35
PROVIDERS: ADMIT Allergy & Immunology; ATTEND Allergy & Immunology
PROC: HZ2ZZZZ Detoxification Services for Substance Abuse Treatment (ICD-10-PCS; principal; 2020-04-23)
DX: F10.230 Alcohol dependence with withdrawal, uncomplicated (principal); F17.210 Nicotine dependence, cigarettes, uncomplicated; F10.282 Alcohol dependence with alcohol-induced sleep disorder; F41.9 Anxiety disorder, unspecified; F32.9 Major depressive disorder, single episode, unspecified; Z91.410 Personal history of adult physical and sexual abuse
CPT/HCPCS: 36415; 80053; 85027; 86780; C9803; U0003